=== PATIENT | female | born 2000 | race Caucasian/White ===

== ENCOUNTER 2023-10-30 10:53 | Emergency (ER) | payer OTHER ==
[~2023-10-30] VITALS: Ht 170.2 cm; Wt 54.4 kg
[2023-10-30 10:55] VITALS: BP_SYST 115; PULSE 73; RESP 18; TEMP 98.5; O2SAT 100
[2023-10-30] MEDS ORDERED: IBUP-1969 PO (12:21)
[2023-10-30 12:46] VITALS: BP_SYST 112; PULSE 70; RESP 20; TEMP 97.8; O2SAT 100
== END 2023-10-30 12:44 | disposition home or self-care (01) ==
LOC: SED 10:53
DX: S43.401A Unspecified sprain of right shoulder joint, initial encounter (principal); Z79.899 Other long term (current) drug therapy; W22.8XXA Striking against or struck by other objects, initial encounter; Y93.89 Activity, other specified; Y92.89 Other specified places as the place of occurrence of the external cause; Y99.8 Other external cause status
CPT/HCPCS: 73030; 99283